=== PATIENT | female | born 1965 | race Caucasian/White ===

== ENCOUNTER 2023-01-29 14:16 | Emergency (ER) | payer OTHER ==
[2023-01-29] MEDS ORDERED: Ondansetron 4 MG/2 ML SDV IVPUSH ONE ×2 (14:28→15:21)
[2023-01-29] MEDS ORDERED: Ondansetron 4 MG/2 ML SDV ONE (14:28)
[2023-01-29] MEDS ORDERED: Sodium Chloride 0.9% 10 ML Syringe FLUSH PRN (14:28)
[2023-01-29] MEDS ORDERED: Ketorolac 30 MG/ML SDV IVPUSH ONE (14:51)
[2023-01-29] MEDS ORDERED: Acetaminophen 500 MG Tab PO ONE (14:51)
[2023-01-29] MEDS ORDERED: Sodium Chloride 0.9% 1,000 ML IV ONE (14:55)
[2023-01-29 14:56] LABS: BASOPHILS PERCENT AUTO 0.7 % (0.0-1.0); EOSINOPHILS PERCENT AUTO 3.3 % (1.0-3.0); HEMATOCRIT 46.5 % (37.0-47.0); HEMOGLOBIN 15.7 g/dL (12.0-16.0); LYMPHOCYTES PERCENT AUTO 27.1 % (20.5-50.1); MEAN CORPUSCULAR HGB CONC 33.8 g/dL (33.0-35.0); MEAN CORPUSCULAR VOLUME 94.7 fL (80-100); MONOCYTES PERCENT AUTO 6.7 % (2-8); NEUTROPHILS PERCENT AUTO 62.2 % (42.2-75.2); PLATELET COUNT,PLT 253 10^3/uL (150-450); RED BLOOD CELL COUNT 4.91 10^6/uL (4.2-5.4); WHITE BLOOD CELL COUNT,WBC 6.7 10^3/uL (5.0-10.0)
[2023-01-29 15:16] LABS: A/G RATIO 1.4; ALBUMIN 4.2 g/dL (3.4-5.0); BILIRUBIN TOTAL 0.3 mg/dL (0.2-1.0); CREATININE 1.18 mg/dL (0.55-1.02); EST CRCL DRUG DOSING (CG) 46.19 mL/min; PROTEIN TOTAL,TP 7.2 g/dL (6.4-8.2)
== END 2023-01-29 15:47 | disposition home or self-care (01) ==
LOC: DL.ED 14:16
DX: G43.909 Migraine, unspecified, not intractable, without status migrainosus (principal); E86.0 Dehydration; E78.00 Pure hypercholesterolemia, unspecified; I10 Essential (primary) hypertension; Z79.899 Other long term (current) drug therapy; Z88.1 Allergy status to other antibiotic agents
CPT/HCPCS: 36415; 70450; 80053; 85025; 96361; 96374; 96375; 96376; 99284; A9270-GY; J1885; J2405; J3490; J7030

== ENCOUNTER 2024-12-18 06:23 | Day surgery (SDC) | payer OTHER ==
[2024-12-18] MEDS ORDERED: Midazolam 1 MG/ML 2 ML SDV IV ONE (06:48)
[2024-12-18] MEDS ORDERED: fentaNYL 100 MCG/2 ML SDV IV ONE (06:48)
[2024-12-18] MEDS ORDERED: Midazolam 1 MG/ML 2 ML SDV ONE (06:48)
[2024-12-18] MEDS ORDERED: fentaNYL 100 MCG/2 ML SDV ONE (06:48)
[2024-12-18] MEDS: Dextrose 5%-0.45% NaCl 1,000 ML IV SCH (06:50)
[2024-12-18] MEDS: fentaNYL 100 MCG/2 ML SDV IV ONE ×2 (07:48)
[2024-12-18] MEDS: Midazolam 1 MG/ML 2 ML SDV IV ONE ×4 (07:49→07:57)
== END 2024-12-18 09:32 | disposition home or self-care (01) ==
LOC: DL.ENDO 06:23
PROVIDERS: ATTEND Internal Medicine Gastroenterology
DX: Z12.11 Encounter for screening for malignant neoplasm of colon (principal)
CPT/HCPCS: J2250; J3010